=== PATIENT | female | born 1995 | race Hispanic/Latino ===

== ENCOUNTER 2017-09-02 17:14 | Observation (INO) | payer MEDICAID ==
[~2017-09-02] VITALS: Ht 149.9 cm; Wt 55.8 kg
[2017-09-02 18:11] LABS: BASOPHILS % (AUTO) 0.2 % (0.0-5.0); EOSINOPHILS % (AUTO) 0.4 % (0.0-8.0); HEMATOCRIT 39.5 % (36-48); LYMPHOCYTES % (AUTO) 9.7 % (21.0-51.0); MEAN CORPUSCULAR HGB CONC 35.8 g/dL (32.0-36.0); MEAN CORPUSCULAR VOLUME 83.8 fL (80-100); MONOCYTES % (AUTO) 4.2 % (3.0-13.0); NEUTROPHILS % (AUTO) 85.5 % (40.0-77.0); PLATELET COUNT (AUTO) 286 K/uL (130-400); RED BLOOD CELL COUNT(AUTO) 4.71 MIL/uL (4.00-5.50); RED CELL DISTRIBUTION WIDTH 13.1 % (11.0-15.5)
[2017-09-02 18:14] LABS: APPEARANCE,URINE Cloudy (CLEAR); BILIRUBIN,URINE Negative (NEGATIVE); COLOR,URINE Yellow (YELLOW); GLUCOSE, URINE (UA) Negative (NEGATIVE); KETONES,URINE 40 mg/dL (NEGATIVE); LEUKOCYTE ESTERASE ,URINE Moderate (NEGATIVE); NITRATE,URINE Positive (NEGATIVE); OCCULT BLOOD,URINE Large (NEGATIVE); PROTEIN,URINE 300 (NEGATIVE)
[2017-09-02 18:19] LABS: HCG,QUAL RESULT POSITIVE (NEGATIVE)
[2017-09-02 18:20] LABS: CREATININE 0.7 mg/dL (0.5-1.5); POTASSIUM 3.6 mmol/L (3.5-5.1)
[2017-09-02] MEDS ORDERED: CEFTRIAXONE SODIUM 1 GM ONE (18:47)
[2017-09-02 18:57] LABS: WBC,URINE 51-100 /HPF (0-1)
[2017-09-02 18:58] LABS: AMORPHOUS SEDIMENT,UR Few /LPF (None Seen); BACTERIA,URINE Moderate /HPF (None Seen); SQUAMOUS EPITHELIAL CELL,UR Few /LPF (0-2)
[2017-09-02 21:06] VITALS: BP 116/72
[2017-09-02] MEDS ORDERED: PREN1TAB89 PO (21:36)
[2017-09-02] MEDS ORDERED: PROMETHAZINE HCL 25 MG TABLET PO PRN (21:45)
[2017-09-02] MEDS ORDERED: ACETAMINOPHEN 325 MG TAB PO PRN (21:45)
[2017-09-02] MEDS: LACTATED RINGERS 1000ML 1,000 ML IV SCH (22:54)
[2017-09-02 23:12] VITALS: BP 108/72
[2017-09-03 03:17] VITALS: BP 95/55
[2017-09-03] MEDS: LACTATED RINGERS 1000ML 1,000 ML IV SCH ×3 (03:45→20:24)
[2017-09-03 07:32] VITALS: BP 102/64
[2017-09-03 11:27] VITALS: BP 108/68
[2017-09-03 15:53] VITALS: BP 116/60
[2017-09-03] MEDS: CEFTRIAXONE 1GM/D5W 50ML 50 ML IV SCH (18:02)
[2017-09-03 19:38] VITALS: BP 106/65
[2017-09-03 23:12] VITALS: BP 113/73
[2017-09-04] MEDS: LACTATED RINGERS 1000ML 1,000 ML IV SCH (02:33)
[2017-09-04 03:25] VITALS: BP 101/53
[2017-09-04 07:03] LABS: BASOPHILS % (AUTO) 0.2 % (0.0-5.0); EOSINOPHILS % (AUTO) 3.4 % (0.0-8.0); HEMATOCRIT 34.3 % (36-48); LYMPHOCYTES % (AUTO) 30.4 % (21.0-51.0); MEAN CORPUSCULAR HEMOGLOBIN 30.7 pg (27.0-33.0); MEAN CORPUSCULAR HGB CONC 36.1 g/dL (32.0-36.0); MEAN CORPUSCULAR VOLUME 85.1 fL (80-100); MONOCYTES % (AUTO) 4.6 % (3.0-13.0); NEUTROPHILS % (AUTO) 61.4 % (40.0-77.0); PLATELET COUNT (AUTO) 217 K/uL (130-400); RED BLOOD CELL COUNT(AUTO) 4.04 MIL/uL (4.00-5.50); RED CELL DISTRIBUTION WIDTH 13.2 % (11.0-15.5); WHITE BLOOD COUNT (AUTO) 9.1 K/uL (4.8-10.8)
[2017-09-04 07:25] VITALS: BP 107/66
[2017-09-04 11:22] VITALS: BP 103/52
[2017-09-04] MEDS ORDERED: NITR100C4 PO (14:25)
[2017-09-04] MEDS: CEFTRIAXONE 1GM/D5W 50ML 50 ML IV SCH (15:01)
[2017-09-04] MEDS ORDERED: FLU VACC QS2017-18 36MOS UP/PF 60 MCG/0.5 ML ML IM ONE (15:45)
== END 2017-09-04 15:30 | disposition home or self-care (01) ==
LOC: EDH 17:14 → UNDOADMOB 17:15 → EDHIP 17:15 → WSH 21:00 → EDHIP 21:00
PROVIDERS: ADMIT Obstetrics & Gynecology; ATTEND Obstetrics & Gynecology
DX: O23.01 Infections of kidney in pregnancy, first trimester (principal); O99.111 Other diseases of the blood and blood-forming organs and certain disorders involving the immune mechanism complicating pregnancy, first trimester; D72.829 Elevated white blood cell count, unspecified; Z3A.13 13 weeks gestation of pregnancy; Z23 Encounter for immunization
CPT/HCPCS: 36415 ×2; 76770; 76801; 80048; 81001; 81025; 84702; 85025 ×2; 87088; 87186; 90471; 96361 ×3; 96374; 96376; 99285; G0378 ×46; J0696 ×3; J7120 ×4; Q2038